=== PATIENT | male | born 1990 | race African-American/Black ===

== ENCOUNTER 2019-08-15 11:56 | Emergency (ER) | payer OTHER, MEDICAID ==
[~2019-08-15] VITALS: Ht 180.3 cm; Wt 74.8 kg
[2019-08-15] MEDS ORDERED: HYDROCODONE/APAP 10-325 MG TABLET PO ONE (12:30)
[2019-08-15] MEDS ORDERED: HYDROCODONE/APAP 10-325 MG TABLET ONE (12:31)
--- NOTE | 2019-08-15 13:25 | NUR ---
patient resting comfortably in stretcher. no c/o at the moment
--- NOTE | 2019-08-15 13:55 | NUR ---
Patient ok for D/C. Patient reports brother will come to pick him up.
== END 2019-08-15 13:57 | disposition home or self-care (01) ==
LOC: ER 12:03
DX: S06.0X0A Concussion without loss of consciousness, initial encounter (principal); S16.1XXA Strain of muscle, fascia and tendon at neck level, initial encounter; S33.5XXA Sprain of ligaments of lumbar spine, initial encounter; Z88.5 Allergy status to narcotic agent; V43.52XA Car driver injured in collision with other type car in traffic accident, initial encounter; Y93.89 Activity, other specified; Y92.410 Unspecified street and highway as the place of occurrence of the external cause; Y99.8 Other external cause status
CPT/HCPCS: 70450; 72125; A4663

== ENCOUNTER 2019-10-23 16:01 | Emergency (ER) | payer MEDICAID ==
[~2019-10-23] VITALS: Ht 180.3 cm; Wt 72.6 kg
== END 2019-10-23 16:39 | disposition home or self-care (01) ==
LOC: ER 16:04
DX: S16.1XXA Strain of muscle, fascia and tendon at neck level, initial encounter (principal); G89.29 Other chronic pain; J45.909 Unspecified asthma, uncomplicated; H10.89 Other conjunctivitis; J06.9 Acute upper respiratory infection, unspecified; R06.02 Shortness of breath; Z60.2 Problems related to living alone; Z88.5 Allergy status to narcotic agent
CPT/HCPCS: A4663